=== PATIENT | female | born 1955 | race Caucasian/White ===

== ENCOUNTER → 2020-01-24 | Day surgery (SDC) | payer OTHER ==
[2020-01-21 09:59] VITALS: BMI 28.1
[~2020-01-24] MED LIST: LACTATED RINGERS 1,000 ML IV SCH; MULTIVITAMINS, THERA 1 EACH TAB PO SCH; OXYBUTYNIN CHLORIDE 5 MG TAB PO SCH; PROPOFOL 10 MG/ML 20 ML VIAL IV ONE; RIVAROXABAN 20 MG TAB PO SCH; SODIUM CHLORIDE 0.9% 1,000 ML IV SCH; carvediloL 6.25 MG TAB PO SCH; hydrALAZINE HCL 50 MG TAB PO SCH; hydroCHLOROthiazide 25 MG TAB PO SCH; lisinopriL 5 MG TAB PO SCH
[2020-01-24 06:54] LABS: African American GFR (CKD) >90 (>60 ml/min/1.73 sqM); Anion Gap 5 mmol/L; Blood Urea Nitrogen 24 mg/dL (7-17); Calcium 9.2 mg/dL (8.4-10.2); Carbon Dioxide 36 mmol/L (22-30); Chloride 101 mmol/L (98-107); Glucose 111 mg/dL (74-99); Non-African American GFR(CKD) 83 (>60 ml/min/1.73 sqM); Potassium 3.2 mmol/L (3.5-5.1); Sodium 142 mmol/L (137-145)
--- NOTE | 2020-01-24 07:43 | CE ---
CARDIAC ELECTROPHYSIOLOGY REPORT CARDIOVERSION PROCEDURE NOTE: INDICATION: Atrial fibrillation. PROCEDURE: After explaining the procedure to the patient as well as risks and the complications after performing transesophageal echocardiogram and obtaining sedated state, a synchronized biphasic cardioversion using 200 joules and subsequently 250 joules were successful in restoring normal sinus rhythm. There was no immediate complication. YOLANDA / IKE: [id number] /
[2020-01-24 08:05] VITALS: TEMP 97.5
[2020-01-24 08:07] VITALS: RESP 16
--- NOTE | 2020-01-24 09:25 | ECHOT ---
TRANSESOPHAGEAL ECHOCARDIOGRAM INDICATION: Atrial fibrillation. PROCEDURE: After explaining the procedure to the patient, its risks and complication, blood pressure heart rate O2 saturation was monitored, the throat was sprayed with Cetacaine. She received sedation per Anesthesia Department. After obtaining sedated state per anesthesia department, the probe was introduced into the esophagus without difficulty. Images were obtained. Following that, the probe was removed. There was no immediate complication. FINDINGS: Left ventricular size is moderately dilated. Left ventricular size and systolic function normal. The left atrial appendage is normal. The aortic valve, tricuspid and pulmonic valve are normal. Descending thoracic aorta appears to be normal. No pericardial effusion was noted. Contrast bubble study revealed no evidence of shunting across the interatrial septum. Doppler pulse was obtained. It revealed mild mitral with moderate tricuspid regurgitation. There was no shunting across the interatrial septum. CONCLUSION: 1. Dilated left atrium with normal appearance of left atrial appendage. 2. Normal size and systolic function. 3. Mild mitral with moderate tricuspid regurgitation. 4. No shunting across the interatrial septum. MMODL / IJN: [id number] /
[2020-01-24 09:33] VITALS: BP 151/85; PULSE 70
== END | disposition home or self-care (01) ==
LOC: CATHCVL 06:02
PROVIDERS: ATTEND Internal Medicine Interventional Cardiology
DX: I08.1 Rheumatic disorders of both mitral and tricuspid valves (principal); I48.21 Permanent atrial fibrillation; I10 Essential (primary) hypertension; E66.9 Obesity, unspecified; Z79.01 Long term (current) use of anticoagulants; Z79.899 Other long term (current) drug therapy; Z87.891 Personal history of nicotine dependence; Z68.35 Body mass index [BMI] 35.0-35.9, adult
CPT/HCPCS: 93312; 93320; 93325; 92960; 80048; J2704

== ENCOUNTER → 2021-01-01 | Outpatient (CLI) | payer OTHER ==
[2021-01-01 14:49] LABS: HGB 11.5 gm/dL (11.4-16.0); Hypochromasia Slight; MCH 28.6 pg (25.0-35.0); MCHC 29.6 g/dL (31.0-37.0); MCV 96.8 fL (80.0-100.0); Mean Platelet Volume 8.6; Platelet Count 146 k/uL (150-450); RBC 4.03 m/uL (3.80-5.40); RDW 14.8 % (11.5-15.5); WBC 7.3 k/uL (3.8-10.6)
[2021-01-01 14:57] LABS: African American GFR (CKD) >90 (>60 ml/min/1.73 sqM); Anion Gap 3 mmol/L; Blood Urea Nitrogen 23 mg/dL (7-17); Carbon Dioxide 37 mmol/L (22-30); Chloride 103 mmol/L (98-107); Non-African American GFR(CKD) >90 (>60 ml/min/1.73 sqM); Potassium 3.4 mmol/L (3.5-5.1); Sodium 143 mmol/L (137-145)
== END | disposition home or self-care (01) ==
LOC: LABPAT 13:51
PROVIDERS: ATTEND Internal Medicine Interventional Cardiology
DX: Z01.812 Encounter for preprocedural laboratory examination (principal); I48.11 Longstanding persistent atrial fibrillation
CPT/HCPCS: 36415; 80051; 82565; 84520; 85027

== ENCOUNTER 2021-01-05 05:49 | Day surgery (SDC) | payer OTHER ==
[2020-12-29 10:14] VITALS: BMI 33.4
[2021-01-05] MEDS ORDERED: SODIUM CHLORIDE 0.9% 1,000 ML IV SCH ×2 (06:04→07:45)
[2021-01-05] MEDS ORDERED: SODIUM CHLORIDE 0.9% 500 ML 500 ML IV ONE (06:20)
[2021-01-05] MEDS ORDERED: PROPOFOL 10 MG/ML 20 ML VIAL IV ONE (07:12)
[2021-01-05] MEDS: BENZOCAINE SPRAY 1 CAN MUCOUS MEM ONE ×2 (07:15→07:20)
[2021-01-05 07:46] VITALS: TEMP 98
[2021-01-05 08:02] VITALS: RESP 16
--- NOTE | 2021-01-05 08:38 | ECHOT ---
TRANSESOPHAGEAL ECHOCARDIOGRAM INDICATION: Evaluation of left atrial appendage. PROCEDURE: After explaining the procedure to the patient, its risks and the complications, blood pressure, heart rate, O2 saturation was monitored. The throat was sprayed with Cetacaine. She received sedation per Anesthesia Department. The probe was introduced into the esophagus without difficulty. Images were obtained. Following that, the probe was removed. There was no immediate complications. FINDINGS: Left atrial size is dilated. Left atrial appendage is normal. Left ventricular size and systolic function are normal. The aortic valve, mitral valve and tricuspid valve are normal. Descending thoracic aorta appears to be normal. Contrast bubble study revealed no evidence of shunting across the interatrial atrial septum. Pulse wave and color Doppler were obtained, revealed mild mitral and tricuspid regurgitation. There was no shunting by color Doppler study. CONCLUSION: 1. Dilated left atrium with normal appearance left atrial appendage. 2. Normal left ventricular size and systolic function. 3. Mild mitral and tricuspid regurgitation. 4. No shunting across the interatrial septum. MMODL / IJN: [id number] /
--- NOTE | 2021-01-05 08:38 | CE ---
CARDIAC ELECTROPHYSIOLOGY REPORT CARDIOVERSION: INDICATION: Atrial fibrillation. PROCEDURE: After explaining the procedure to the patient, its risks and the complications, after obtaining sedated state per anesthesia department and performing transesophageal echocardiogram, a synchronized biphasic cardioversion using 75, 100, 150, 200 joules were performed without ability to restore sinus mechanism. There was no immediate complication. YOLANDA / CAMRONN: [id number] / MTDD
[2021-01-05 10:25] VITALS: BP 154/71; PULSE 74
[2021-01-05] MEDS ORDERED: hydrALAZINE HCL 50 MG TAB PO SCH (16:00)
[2021-01-05] MEDS ORDERED: carvediloL 6.25 MG TAB PO SCH (17:30)
[2021-01-05] MEDS ORDERED: lisinopriL 5 MG TAB PO SCH (21:00)
[2021-01-05] MEDS ORDERED: RIVAROXABAN 20 MG TAB PO SCH (21:00)
[2021-01-06] MEDS ORDERED: MULTIVITAMINS, THERA 1 EACH TAB PO SCH (09:00)
[2021-01-06] MEDS ORDERED: hydroCHLOROthiazide 25 MG TAB PO SCH (09:00)
[2021-01-06] MEDS ORDERED: OXYBUTYNIN CHLORIDE 5 MG TAB PO SCH (09:00)
== END 2021-01-05 10:17 | disposition home or self-care (01) ==
LOC: CATHCVL 05:49
PROVIDERS: ATTEND Internal Medicine Interventional Cardiology
DX: I48.91 Unspecified atrial fibrillation (principal); I49.9 Cardiac arrhythmia, unspecified; I10 Essential (primary) hypertension; Z79.01 Long term (current) use of anticoagulants
CPT/HCPCS: 93312; 93320; 93325; 92960; J2704

== ENCOUNTER → 2021-05-21 | Outpatient (CLI) | payer OTHER ==
[2021-05-21 10:03] LABS: Potassium 3.2 mmol/L (3.5-5.1)
[2021-05-21 10:06] LABS: HCT 41.5 % (34.0-46.0); HGB 12.1 gm/dL (11.4-16.0); Hypochromasia Marked; MCH 25.6 pg (25.0-35.0); MCHC 29.1 g/dL (31.0-37.0); MCV 87.8 fL (80.0-100.0); Mean Platelet Volume 8.5; Platelet Count 224 k/uL (150-450); RBC 4.73 m/uL (3.80-5.40); RDW 15.8 % (11.5-15.5); WBC 6.6 k/uL (3.8-10.6)
== END | disposition home or self-care (01) ==
LOC: LABPAT 08:55
PROVIDERS: ATTEND Internal Medicine Clinical Cardiac Electrophysiology
DX: Z01.812 Encounter for preprocedural laboratory examination (principal); I48.11 Longstanding persistent atrial fibrillation
CPT/HCPCS: 80051; 82565; 84520; 85027

== ENCOUNTER 2021-05-29 08:27 | Day surgery (SDC) | payer OTHER ==
[2021-05-25 10:54] VITALS: BMI 33.4
[~2021-05-29 08:27] MED LIST changes: -MULTIVITAMINS, THERA 1 EACH TAB PO SCH; -OXYBUTYNIN CHLORIDE 5 MG TAB PO SCH; -PROPOFOL 10 MG/ML 20 ML VIAL IV ONE; -RIVAROXABAN 20 MG TAB PO SCH; -carvediloL 6.25 MG TAB PO SCH; -hydrALAZINE HCL 50 MG TAB PO SCH; -hydroCHLOROthiazide 25 MG TAB PO SCH; -lisinopriL 5 MG TAB PO SCH
[2021-05-29] MEDS ORDERED: IV FLUID CONTINUATION 1,000 ML IV ONE (10:27)
[2021-05-29] MEDS ORDERED: LIDOCAINE 1% INJ 10MG/ML (20 ML MDV) SQ ONE (11:10)
[2021-05-29] MEDS ORDERED: HEPARIN SOD,PORK IN 0.45% NACL 25,000 UNIT in 0.45% NACL 1 250ML.BAG IV ONE (11:12)
[2021-05-29] MEDS ORDERED: IOPAMIDOL-370 100ML BTL INJ ONE (13:02)
[2021-05-29] MEDS ORDERED: ACETAMINOPHEN IV (For NPO) 1,000 MG in EMPTY BAG 1 BAG IVPB ONE (13:18)
[2021-05-29] MEDS ORDERED: ACETAMINOPHEN TAB 325 MG TAB PO PRN (13:18)
--- NOTE | 2021-05-29 13:23 | P.EPPROC ---
- EP Procedure Note Electrophysiology Procedure Note: PROCEDURE A. fib ablation, PVI and ablation in the left atrial roof and the left atrial septum DIAGNOSIS Atrial fibrillation, symptomatic, refractory to therapy, persistent RESULT No left atrial appendage mass seen on intracardiac echo Successful A. fib ablation/pulmonary vein isolation of all veins using cryo- ablation Complete entrance block in all 4 veins confirmed Linear ablation along the left atrial roof Ablation of the left atrial septum Electrical cardioversion performed No evidence for phrenic nerve injury Esophageal deflection YES PROCEDURE DETAILS Patient was brought to the EP lab in a fasting state after obtaining written informed consent. Procedure performed under general anesthesia Esophagus was intubated. Esophageal temperature monitoring with circa catheter. Esophageal deflection with an endoscope to avoid hypothermia of the esophagus. After initial muscle relaxant use, muscle relaxants were not given thereafter in order to assess phrenic nerve during procedure. Patient prepped and draped as per protocol Cryo ablation-set up with standard preparation of the cryoablation tools done. Femoral Venous access obtained on the right and left groins and sheaths placed Diagnostic catheters for the high right atrium, phrenic nerve stimulation and pacing, His bundle, coronary sinus placed Intracardiac echo catheter placed. Long sheath placed in the right atrium Left and right transseptal catheterization performed under intracardiac echo guidance. Intravenous heparin with aCT above 300 Later, catheter positioning and balloon positioning in the left atrium and pulmonary veins, under intracardiac echo guidance Diagnostic EP study with coronary sinus pacing and recording Baseline measurements: AH 95, HV 54, QRS 73 Transseptal catheterization performed RA pressure 19/50/17 LA pressure 26/50/20 Transseptal catheterization performed with standard sheath. The cryoablation sheath was then placed with an over the wire exchange without any acute complications. The cryoablation balloon was placed in the office of each pulmonary vein and all 4 pulmonary veins were isolated. IV dye was injected to confirm occlusion. Goal: achieve complete occlusion of the pulmonary vein, achieve -30 degrees C at 30 seconds and achieve -40 degrees C at 60 seconds and a time to effect of less than 60 seconds. If not, the balloon was repositioned to obtain this result After completion of Cryoblation with durations from 180-240 seconds, entrance block was confirmed with the Attain circular catheter in a roving fashion around the antrum of the pulmonary veins Phrenic nerve pacing was performed from the SVC, right innominate vein area and diaphragm voltage was monitored. Diaphragmatic contractions were also monitored manually for strength of contraction. At the end of the procedure the Achieve catheter was once again used to check for entrance block Linear ablation was performed along the left atrial roof. Sequential lesions of Cryoblation from the left superior to the right superior veins Mapping following that revealed a quiescent left atrial roof Septal ablation performed with cannulation of the inferior branch of the right superior pulmonary vein. The catheter in the balloon/catheter turned anteriorly for left total septal ablation Phrenic nerve stimulation was performed to confirm diaphragmatic stimulation the end of the procedure Cine fluoroscopy was performed at the very end of the procedure to confirm movement of both diaphragms with inspiration and expiration At the end of the procedure the patient was extubated Venous sheaths were removed and hemostasis assured with a closure device PROCEDURES PERFORMED Diagnostic EP study CS pacing and recording Left and right transseptal catheterization Catheter the mapping of the tachycardia Intracardiac echocardiography Pulmonary vein isolation with transseptal and comprehensive EPS, [id number] Left atrial roof line, +[id number] Septal ablation, left atrium, +[id number] Electrical cardioversion with a synchronized shock across the chest [id number]
--- NOTE | 2021-05-29 13:25 | P.PRLE ---
RE: Niki Andino Dear Licha Niki Thu underwent in A. fib ablation with pulmonary vein isolation successfully along with left atrial roof and left atrial septum ablation She will continue xarelto 20 mg by mouth daily and will follow with you and Dr. Carr as before Thank you for entrusting me with the care of the patient Warm regards Sincerely Adair Matos
[2021-05-29 15:05] VITALS: RESP 16
[2021-05-29] MEDS: hydrALAZINE HCL 50 MG TAB PO SCH ×2 (16:50→22:26)
[2021-05-29] MEDS ORDERED: RIVAROXABAN 20 MG TAB PO SCH (21:00)
[2021-05-29] MEDS: carvediloL 6.25 MG TAB PO SCH (22:25)
[2021-05-29] MEDS: lisinopriL 5 MG TAB PO SCH (22:26)
[2021-05-30 08:37] VITALS: BP 149/80; PULSE 80; TEMP 98.4
[2021-05-30] MEDS: hydrALAZINE HCL 50 MG TAB PO SCH (08:50)
[2021-05-30] MEDS: carvediloL 6.25 MG TAB PO SCH (08:50)
[2021-05-30] MEDS: lisinopriL 5 MG TAB PO SCH (08:50)
[2021-05-30] MEDS ORDERED: OXYBUTYNIN CHLORIDE 5 MG TAB PO SCH (09:00)
[2021-05-30] MEDS ORDERED: hydroCHLOROthiazide 25 MG TAB PO SCH (09:00)
--- NOTE | 2021-05-30 09:51 | P.DS ---
Providers Attending physician: Adair Matos Primary care physician: [facility] Course: Patient is doing well. No chest discomfort no dizziness lightheadedness no palpitations No sore throat She is resting comfortably in bed and is more prominent in the room On examination afebrile 98.4F respirations 16 146/85 mmHg and 135/76. His mercury Breath sounds are clear no rhonchi no crackles Soft systolic murmur over the precordium Abdomen soft Extremities are warm Groins have healed well no hematoma Impression persistent atrial fibrillation Status post pulmonary vein isolation and ablation of left atrial roof and the left atrial septum Followed by electrical cardioversion Plan continue all cardiac medications Continue anticoagulation. This was emphasized to the patient once again Plan discharge home today Follow Dr. Carr in 1-2 weeks Plan - Discharge Summary Discharge Rx Participant: No New Discharge Prescriptions: Continue Rivaroxaban [Xarelto] 20 mg PO HS lisinopriL [Zestril] 5 mg PO BID hydroCHLOROthiazide [Hydrodiuril] 25 mg PO DAILY Carvedilol [Coreg] 6.25 mg PO BID hydrALAZINE HCL [Apresoline] 50 mg PO TID Multivitamins, Thera [Multivitamin (formulary)] 1 tab PO DAILY Oxybutynin Chloride [Ditropan] 5 mg PO DAILY Discharge Medication List Carvedilol [Coreg] 6.25 mg PO BID 01/21/20 [History] Multivitamins, Thera [Multivitamin (formulary)] 1 tab PO DAILY 01/21/20 [History] Oxybutynin Chloride [Ditropan] 5 mg PO DAILY 01/21/20 [History] Rivaroxaban [Xarelto] 20 mg PO HS 01/21/20 [History] hydrALAZINE HCL [Apresoline] 50 mg PO TID 01/21/20 [History] hydroCHLOROthiazide [Hydrodiuril] 25 mg PO DAILY 01/21/20 [History] lisinopriL [Zestril] 5 mg PO BID 01/21/20 [History] Follow up Appointment(s)/Referral(s): Farzana Carr MD [STAFF PHYSICIAN] - 06/06/21 9:00 am (Follow up with Dr. Carr as scheduled for you) Activity/Diet/Wound Care/Special Instructions: Post EP study - Ablation instructions 1. Keep access sites dry for 2 days. 2. No heavy lifting or straining for 2 days. 3. Avoid bending the hips repeatedly for 2 days. 4. You may go up and down stairs slowly Call if the following is noted 1. Bleeding, increasing swelling or pain at the access sites. 2. Increasing chest discomfort, especially upon taking a deep breath. 3. Increasing shortness of breath, at rest or with exertion. 4. Undue cough / phlegm 5. Difficulty or pain while swallowing. 6. Pain or change in color in the extremities. 7. Fever, chills, rigors. 8. Increasing headache or neurologic symptoms. 9. Dizziness, fainting, palpitations Follow Dr. Carr in a week Continue Xarelto and other cardiac medications
== END 2021-05-30 10:53 | disposition home or self-care (01) ==
LOC: CATHEP 08:27 → 6NMEDSUR 13:00 → CATHEP 05-30 10:53
PROVIDERS: ATTEND Internal Medicine Clinical Cardiac Electrophysiology
DX: I48.91 Unspecified atrial fibrillation (principal); Z20.822 Contact with and (suspected) exposure to COVID-19
CPT/HCPCS: 93656; 93657; 87635; J2001; Q9967; J1644; 92960

== ENCOUNTER 2021-09-07 06:01 | Day surgery (SDC) | payer OTHER ==
[2021-09-04 15:03] VITALS: BMI 33.4
[~2021-09-07 06:01] MED LIST changes: -LACTATED RINGERS 1,000 ML IV SCH
[2021-09-07] MEDS ORDERED: SODIUM CHLORIDE 0.9% 1,000 ML IV ONE (06:08)
[2021-09-07 06:36] VITALS: TEMP 9.6
[2021-09-07 07:02] LABS: African American GFR (CKD) >90 (>60 ml/min/1.73 sqM); Anion Gap 6 mmol/L; Blood Urea Nitrogen 22 mg/dL (7-17); Calcium 9.1 mg/dL (8.4-10.2); Carbon Dioxide 34 mmol/L (22-30); Chloride 104 mmol/L (98-107); Glucose 103 mg/dL (74-99); Non-African American GFR(CKD) 81 (>60 ml/min/1.73 sqM); Potassium 3.5 mmol/L (3.5-5.1); Sodium 144 mmol/L (137-145)
[2021-09-07] MEDS ORDERED: PROPOFOL 10 MG/ML 20 ML VIAL IV ONE (07:12)
[2021-09-07] MEDS ORDERED: BENZOCAINE SPRAY 1 CAN TOPICAL ONE (07:13)
--- NOTE | 2021-09-07 07:41 | P.PCN ---
Date of Procedure: 09/07/21 Description of Procedure: Indication: Atrial fibrillation Procedure Description: After explaining the procedure to the patient, it's risk and complications, blood pressure, heart rate and O2 saturation were monitored. The throat was sprayed with Cetacaine. Patient received sedation per anesthesia department. The probe was introduced into the esophagus without difficulty. Images were obtained. Following that, the probe was removed. There was no immediate complication. Findings: Left atrial size is mildly dilated, left atrial appendage is normal. The ventricle size and systolic function are normal. The aortic valve revealed fibrocalcific changes of the aortic cusps with preserved opening, mitral and tricuspid valve appears to be normal. Descending thoracic aorta appears to be normal. No pericardial effusion was noted. Contrast bubble study revealed [id number] shunting of mild degree. Doppler: pulsed-wave and color Doppler were obtained and revealed mild mild and tricuspid regurgitation with evidence of [id number] shunting across the intra-atrial septum. Conclusion: 1. Mildly dilated left atrium with normal appearance of the left atrial appendage 2. Normal in size and systolic function 3. mild mitral and tricuspid regurgitation 4. Bidirectional shunt across the intra-atrial septum probably secondary to the atrial fibrillation ablation 5. No pericardial effusion
--- NOTE | 2021-09-07 07:42 | P.PCN ---
Date of Procedure: 09/07/21 Description of Procedure: Cardioversion After explaining the procedure to the patient as well is the risks and the complications, her blood pressure, heart rate and O2 saturation were monitored. After obtaining sedated state per Anesthesia department and performing a INDIRA synchronized biphasic cardioversion using 200 J was performed with episcopal of sinus mechanism, there was no immediate complications.
[2021-09-07] MEDS ORDERED: SODIUM CHLORIDE 0.9% 1,000 ML IV SCH (07:45)
[2021-09-07 07:57] VITALS: RESP 16
[2021-09-07 09:23] VITALS: BP 161/72; PULSE 75
[2021-09-07] MEDS ORDERED: hydrALAZINE HCL 50 MG TAB PO SCH (16:00)
[2021-09-07] MEDS ORDERED: carvediloL 12.5 MG TAB PO SCH (17:30)
[2021-09-07] MEDS ORDERED: lisinopriL 5 MG TAB PO SCH (21:00)
[2021-09-07] MEDS ORDERED: RIVAROXABAN 20 MG TAB PO SCH (21:00)
[2021-09-08] MEDS ORDERED: hydroCHLOROthiazide 25 MG TAB PO SCH (09:00)
[2021-09-08] MEDS ORDERED: OXYBUTYNIN CHLORIDE 5 MG TAB PO SCH (09:00)
[2021-09-08] MEDS ORDERED: MULTIVITAMINS, THERA 1 EACH TAB PO SCH (09:00)
== END 2021-09-07 09:42 | disposition home or self-care (01) ==
LOC: CATHCVL 06:01
PROVIDERS: ATTEND Internal Medicine Interventional Cardiology
DX: I48.91 Unspecified atrial fibrillation (principal); I08.1 Rheumatic disorders of both mitral and tricuspid valves; Z20.822 Contact with and (suspected) exposure to COVID-19
CPT/HCPCS: 93312; 93320; 93005; 93325; 92960; 80048; 87635; J2704

== ENCOUNTER → 2022-03-11 | Outpatient (CLI) | payer OTHER ==
--- NOTE | 2022-03-12 08:33 | MM ---
Reason for Exam: Screening (asymptomatic). Baseline mammogram. Patient History: Menarche at age 15. First Full-Term at age 34. Late child-bearing (after 30). Postmenopausal. Risk Values: Shavonne 5 year model risk: 2.2%. NCI Lifetime model risk: 8.9%. Prior Study Comparison: Patient's first Mammogram. Tissue Density: There are scattered fibroglandular densities. Findings: Analyzed By CAD. There is no suspicious group of microcalcifications or new suspicious mass in either breast. Overall Assessment: Negative, BI-RAD 1 Management: Screening Mammogram of both breasts in 1 year. A clinical breast exam by your physician is recommended on an annual basis and results should be correlated with mammographic findings. [facility] will attempt to contact patient to return for supplemental views and ultrasound if indicated. Electronically signed and approved by: Shay Lu DO
== END | disposition home or self-care (01) ==
LOC: RADMAMWWP 10:59
PROVIDERS: ATTEND Family Medicine
DX: Z12.31 Encounter for screening mammogram for malignant neoplasm of breast (principal); Z78.0 Asymptomatic menopausal state
CPT/HCPCS: 77067

== ENCOUNTER 2022-05-03 09:22 | Day surgery (SDC) | payer OTHER ==
[2022-05-01 11:51] VITALS: BMI 33.4
[~2022-05-03 09:22] MED LIST changes: +LACTATED RINGERS 1,000 ML IV SCH; -SODIUM CHLORIDE 0.9% 1,000 ML IV SCH
[2022-05-03] MEDS ORDERED: LACTATED RINGERS 1,000 ML IV ONE (10:12)
[2022-05-03] MEDS ORDERED: PROPOFOL 10 MG/ML 20 ML VIAL IV ONE (11:26)
--- NOTE | 2022-05-03 11:53 | P.PCN ---
Date of Procedure: 05/03/22 Procedure(s) Performed: BRIEF HISTORY: Patient is a 66-year-old pleasant white female scheduled for an elective colonoscopy as a part of screening for colorectal neoplasia. PROCEDURE PERFORMED: Colonoscopy with snare polypectomy. PREOPERATIVE DIAGNOSIS: SCREENING for colon cancer. IV sedation per Anesthesia. PROCEDURE: After informed consent was obtained, the patient, was brought into the endoscopy unit. IV sedation was administered by Anesthesia under continuous monitoring. Digital rectal examination was normal. Initially the Olympus CF-160 flexible video colonoscope was then inserted in the rectum, gradually advanced into the cecum without any difficulty. Careful examination was performed as the scope was gradually being withdrawn. Ileocecal valve and the appendiceal orifice were visualized and appeared normal. Prep was excellent. Mucosa of the cecum, had a 3 mm and 7 mm polyp removed by snare polypectomy. Rest of the ascending colon, transverse colon, descending colon, sigmoid colon, and rectum appeared normal. Retroflexion was performed in the rectum and is a 3 cm broad-based polyp noted in the distal rectum just proximal to the dentate line which was removed by piecemeal snare polypectomy and complete polypectomy was accomplished. The patient tolerated the procedure well. IMPRESSION: 3 mm and 7 mm cecal polyp status post polypectomy 3 cm distal rectal polyp just proximal to the dentate line status post piecemeal snare polypectomy and complete polypectomy accomplished RECOMMENDATIONS: Findings of this examination were discussed with the patient as well as her family.. Advised to follow with the biopsy results. If the biopsy result adenoma she can have a repeat colonoscopy in 3 years.
[2022-05-03 11:59] VITALS: RESP 14
[2022-05-03 12:12] VITALS: BP 145/84; PULSE 72
== END 2022-05-03 12:38 | disposition home or self-care (01) ==
LOC: ORWHC2ENDO 09:22
PROVIDERS: ATTEND Internal Medicine Gastroenterology
DX: Z12.11 Encounter for screening for malignant neoplasm of colon (principal); K62.1 Rectal polyp
CPT/HCPCS: 88305; 45385; J2704

== ENCOUNTER → 2023-10-29 | Outpatient (CLI) | payer MEDICARE ==
[2023-10-29 10:46] LABS: HCT 43.4 % (34.0-46.0); HGB 13.5 gm/dL (11.4-16.0); Hypochromasia Slight; MCH 30.6 pg (25.0-35.0); MCV 98.5 fL (80.0-100.0); Mean Platelet Volume 9.1; Platelet Count 165 k/uL (150-450); RBC 4.41 m/uL (3.80-5.40); RDW 14.3 % (11.5-15.5); WBC 6.5 k/uL (3.8-10.6)
[2023-10-29 15:42] LABS: Blood Urea Nitrogen 24.9 mg/dL (9.0-27.0); Carbon Dioxide 29.2 mmol/L (21.6-31.8); Chloride 108 mmol/L (96-109); Potassium 3.8 mmol/L (3.5-5.5); Sodium 148 mmol/L (135-145)
== END | disposition home or self-care (01) ==
LOC: LABPAT 10:02
PROVIDERS: ATTEND Internal Medicine Clinical Cardiac Electrophysiology
DX: Z01.812 Encounter for preprocedural laboratory examination (principal); I48.21 Permanent atrial fibrillation
CPT/HCPCS: 80051; 82565; 84520; 85027

== ENCOUNTER 2023-11-04 05:53 | Inpatient (IN) | payer MEDICARE ==
[2023-11-04] MEDS: SODIUM CHLORIDE 0.9% 1,000 ML IV SCH (06:40)
[2023-11-04] MEDS: IV FLUID CONTINUATION 1,000 ML IV ONE (06:40)
[2023-11-04 06:53] LABS: ALT 23 U/L (4-34); AST 30 U/L (14-36); African American GFR (CKD) >90 (>60 ml/min/1.73 sqM); Alkaline Phosphatase 66 U/L (38-126); Anion Gap 1 mmol/L; Blood Urea Nitrogen 21 mg/dL (7-17); Calcium 9.4 mg/dL (8.4-10.2); Carbon Dioxide 37 mmol/L (22-30); Chloride 105 mmol/L (98-107); Glucose 112 mg/dL (74-99); Non-African American GFR(CKD) >90 (>60 ml/min/1.73 sqM); Potassium 3.7 mmol/L (3.5-5.1); Sodium 143 mmol/L (137-145); Total Bilirubin 0.8 mg/dL (0.2-1.3); Total Protein 6.5 g/dL (6.3-8.2)
[2023-11-04] MEDS ORDERED: MIDAZOLAM 2 MG/2 ML VIAL IV PRN (07:00)
[2023-11-04] MEDS ORDERED: HYDROmorphone 0.5 MG/0.5 ML SYRINGE IVP PRN (07:00)
[2023-11-04] MEDS: HEPARIN SOD,PORK IN 0.45% NACL 25,000 UNIT in 0.45% NACL 1 250ML.BAG IV ONE (07:16)
[2023-11-04] MEDS ORDERED: PROPOFOL 10 MG/ML 20 ML VIAL IV ONE (07:23)
[2023-11-04] MEDS ORDERED: SUGAMMADEX SODIUM 200 MG/2 ML SDV IV ONE (07:23)
[2023-11-04] MEDS ORDERED: GLYCOPYRROLATE 0.2 MG/ML 2 ML VIAL ONE (07:23)
[2023-11-04] MEDS ORDERED: NEOSTIGMINE 1 MG/ML 10 ML VIAL ONE (07:23)
[2023-11-04] MEDS ORDERED: SUCCINYLCHOLINE CHLORIDE 200 MG/10 ML VIAL IV ONE (07:23)
[2023-11-04] MEDS ORDERED: ROCURONIUM 10 MG/ML (5 ML VIAL) IV ONE (07:23)
[2023-11-04] MEDS ORDERED: LIDOCAINE 1% INJ 10MG/ML (20 ML MDV) ONE (07:50)
[2023-11-04] MEDS: LIDOCAINE 1% INJ 10MG/ML (20 ML MDV) SQ ONE (08:16)
[2023-11-04] MEDS: MAGNESIUM SULFATE-D5W PMX 1 GM in DEXTROSE/WATER 1 100ML.BAG IVPB SCH (09:10)
[2023-11-04] MEDS: HEPARIN SOD,PORK IN 0.45% NACL 25,000 UNIT in 0.45% NACL 1 250ML.BAG IV SCH (09:30)
[2023-11-04 09:38] LABS: T4, Free (Free Thyroxine) 1.09 ng/dL (0.78-2.19)
--- NOTE | 2023-11-04 10:56 | P.HPIM ---
History of Present Illness Patient is a pleasant 67 years old female with past medical history of atrial fibrillation, hyperlipidemia, hypertension history of patent foramen ovale She is from [place] She was admitted for outpatient procedures in the hospital with cardioversion however during the procedure patient developed significant arrhythmia with V. tach and V-fib and she is brought back to sinus rhythm Therefore patient required to be admitted to the hospital for evaluation by organic preparation technician Dr. Carr for possible cardiac cath tomorrow Continue with her medication continue monitoring her blood pressure which was little bit high She has a history of T4 is elevated and TSH suppressed per history Patient was seen and examined in the PACU unit where she was fully awake and oriented, she was feeling comfortable no chest pain or dyspnea No other abdominal pain or vomiting. No urinary complaints headache dizziness weakness She denies smoking alcohol or illicit drugs Currently her blood pressure is 173/95, she is afebrile CBC is unremarkable, TSH was checked today it was low at 0.1 with free T4 normal at 1.0 Review of Systems Review of systems CONSTITUTIONAL: No fever, no malaise, no fatigue. HEENT: No recent visual problems or hearing problems. Denied any sore throat. CARDIOVASCULAR: No orthopnea, PND, no palpitations, no syncope. PULMONARY: No shortness of breath, no cough, no hemoptysis. GASTROINTESTINAL: No diarrhea, no nausea, no vomiting, no abdominal pain. Normoactive bowel sounds. NEUROLOGICAL: No headaches, no weakness, no numbness. HEMATOLOGICAL: Denies any bleeding or petechiae. GENITOURINARY: Denies any burning micturition, frequency, or urgency. MUSCULOSKELETAL/RHEUMATOLOGICAL: Denies any joint pain, swelling, or any muscle pain. ENDOCRINE: Denies any polyuria or polydipsia. Past Medical History Past Medical History: Atrial Fibrillation, Hyperlipidemia, Hypertension Additional Past Medical History / Comment(s): frequent swelling ankles & feet, bladder urgency, see Dr Matos H & P History of Any Multi-Drug Resistant Organisms: None Reported Past Surgical History: Cardiac Ablation, Hysterectomy Additional Past Surgical History / Comment(s): cardioversion & INDIRA Past Anesthesia/Blood Transfusion Reactions: No Reported Reaction Smoking Status: Never smoker - Past Family History Mother Additional Family Medical History / Comment(s): CEREBRAL HEMORRHAGE Sister(s) Family Medical History: Cancer Additional Family Medical History / Comment(s): LUNG CANCER Father Family Medical History: Cancer Medications and Allergies Home Medications Medication Instructions Recorded Confirmed Type Multivitamins, Thera [Multivitamin 1 tab PO DAILY 01/21/20 11/04/23 History (formulary)] Rivaroxaban [Xarelto] 20 mg PO HS 01/21/20 11/04/23 History carvediloL [Coreg] 12.5 mg PO BID 01/21/20 11/04/23 History hydrALAZINE HCL [Apresoline] 50 mg PO TID 01/21/20 11/04/23 History hydroCHLOROthiazide [Hydrodiuril] 25 mg PO AC-LUNCH 01/21/20 11/04/23 History lisinopriL [Zestril] 5 mg PO BID 01/21/20 11/04/23 History oxyBUTYnin chloride [Ditropan] 5 mg PO DAILY 01/21/20 11/04/23 History Potassium Citrate 99 mg PO DAILY 10/31/23 11/04/23 History Rosuvastatin [Crestor] 10 mg PO DAILY 10/31/23 11/04/23 History Allergies Allergy/AdvReac Type Severity Reaction Status Date / Time No Known Allergies Allergy Verified 11/04/23 06:20 Physical Exam Vitals: Vital Signs Temp Pulse Resp BP Pulse Ox 11/04/23 10:00 67 16 173/95 98 11/04/23 09:45 68 14 174/92 100 11/04/23 09:30 65 14 155/89 100 11/04/23 09:15 67 14 154/91 100 11/04/23 09:00 69 14 161/91 100 11/04/23 08:52 73 18 172/96 73 L 11/04/23 06:39 98.7 F 18 179/87 91 L Intake and Output 11/03/23 11/04/23 11/04/23 22:59 06:59 14:59 Intake Total 20 687 Balance 20 687 Intake: IV 20 687 Other: Weight 105.4 kg GENERAL: The patient is alert and oriented x3, not in any acute distress. Well developed, well nourished. HEENT: Pupils are round and equally reacting to light. EOMI. No scleral icterus. No conjunctival pallor. Normocephalic, atraumatic. No pharyngeal erythema. No thyromegaly. CARDIOVASCULAR: S1 and S2 present. No murmurs, rubs, or gallops. PULMONARY: Chest is clear to auscultation, no wheezing , no crackles. ABDOMEN: Soft, nontender, nondistended, normoactive bowel sounds. No palpable organomegaly. MUSCULOSKELETAL: No joint swelling or deformity. EXTREMITIES: No cyanosis, clubbing, or pedal edema. NEUROLOGICAL: Gross neurological examination did not reveal any focal deficits. SKIN: No rashes. no petechiae. Results CBC & Chem 7: 11/04/23 06:15 Labs: Abnormal Lab Results - Last 24 Hours (Table) 11/04/23 Range/Units 06:15 Carbon Dioxide 37 H (22-30) mmol/L BUN 21 H (7-17) mg/dL Glucose 112 H (74-99) mg/dL TSH 0.153 L (0.465-4.680) mIU/L Assessment and Plan Assessment: A-fib status post ablation, and cardioversion Patent fromen ovale Hypertension hyperlipidemia Plan: Admit to the stepdown continue with heparin drip Continue monitoring blood pressure. Currently she is on Coreg 12.5 mg and lisinopril 10 mg twice daily Cardiology consult Possible cardiac cath tomorrow GI and DVT prophylaxis
[2023-11-04] MEDS: hydrALAZINE HCL 50 MG TAB PO SCH ×2 (11:01→17:33)
[2023-11-04] MEDS: SPIRONOLACTONE 25 MG TAB PO SCH (11:01)
[2023-11-04] MEDS: ATORVASTATIN 40 MG TAB PO SCH (14:28)
[2023-11-04] MEDS: LACTATED RINGERS 1,000 ML IV SCH (14:28)
[2023-11-04] MEDS: lisinopriL 20 MG TAB PO SCH (14:29)
[2023-11-04] MEDS ORDERED: IPRATROPIUM-ALBUTEROL 3 ML NEB INHALATION PRN (16:10)
[2023-11-04] MEDS: IPRATROPIUM-ALBUTEROL 3 ML NEB INHALATION STA (16:21)
[2023-11-04] MEDS: carvediloL 12.5 MG TAB PO SCH (16:44)
[2023-11-04] MEDS: lisinopriL 10 MG TAB PO SCH (17:33)
[2023-11-04] MEDS: FAMOTIDINE 20 MG/2 ML VIAL IV SCH (20:19)
[2023-11-05] MEDS ORDERED: ALPRAZolam 0.5 MG TAB PO PRN (08:36)
[2023-11-05] MEDS ORDERED: NITROGLYCERIN SL TABS 0.4 MG TAB SUBLINGUAL PRN (08:36)
[2023-11-05] MEDS ORDERED: ALPRAZolam 0.25 MG TAB PO PRN (08:36)
[2023-11-05 09:06] VITALS: PULSE 67; RESP 18; TEMP 98.6
[2023-11-05] MEDS: ATORVASTATIN 80 MG TAB PO STA (09:09)
[2023-11-05] MEDS: ASPIRIN 325 MG TAB PO STA (09:10)
[2023-11-05] MEDS: IV FLUID CONTINUATION 1,000 ML IV ONE (10:53)
[2023-11-05] MEDS ORDERED: VERAPAMIL 2.5 MG/ML 2 ML AMP ONE (11:02)
[2023-11-05] MEDS ORDERED: LIDOCAINE 1% INJ 10MG/ML (20 ML MDV) ONE (11:02)
[2023-11-05] MEDS ORDERED: HEPARIN SODIUM 1,000 UN/ML (10ML VL) ONE (11:03)
[2023-11-05] MEDS ORDERED: fentaNYL (PF) 50 MCG/ML 2 ML AMP ONE (11:03)
[2023-11-05] MEDS: fentaNYL (PF) 50 MCG/ML 2 ML AMP IVP ONE (11:10)
[2023-11-05] MEDS: LIDOCAINE 1% INJ 10MG/ML (20 ML MDV) SQ ONE (11:14)
[2023-11-05] MEDS: HEPARIN SODIUM,PORCINE 10,000 UNIT in SODIUM CHLORIDE 0.9% 1,000 ML IRRIGATION PRN (11:18)
[2023-11-05] MEDS: HEPARIN SODIUM,PORCINE (1 ML) 2,500 UNIT in SODIUM CHLORIDE 0.9% 250 ML IRRIGATION PRN (11:18)
[2023-11-05] MEDS: HEPARIN SODIUM 1,000 UN/ML (10ML VL) IVP ONE (11:19)
[2023-11-05] MEDS: IOPAMIDOL-370 100ML BTL INJ ONE (11:28)
[2023-11-05 11:36] LABS: Basophils % (A) 0 %; Eosinophils % (A) 0 %; HGB 13.3 gm/dL (11.4-16.0); Hypochromasia Moderate; Lymphocytes # (A) 0.9 k/uL (1.0-4.8); Lymphocytes % (A) 12 %; MCH 30.5 pg (25.0-35.0); MCHC 30.3 g/dL (31.0-37.0); MCV 100.7 fL (80.0-100.0); Macrocytosis Slight; Mean Platelet Volume 9.2; Monocytes # (A) 0.4 k/uL (0-1.0); Monocytes % (A) 5 %; Neutrophils # (A) 5.9 k/uL (1.3-7.7); Neutrophils % (A) 81 %; Platelet Count 135 k/uL (150-450); RBC 4.37 m/uL (3.80-5.40); RDW 14.4 % (11.5-15.5); WBC 7.3 k/uL (3.8-10.6)
[2023-11-05 11:41] LABS: African American GFR (CKD) >90 (>60 ml/min/1.73 sqM); Anion Gap 4 mmol/L; Blood Urea Nitrogen 22 mg/dL (7-17); Carbon Dioxide 33 mmol/L (22-30); Chloride 105 mmol/L (98-107); Glucose 91 mg/dL (74-99); Non-African American GFR(CKD) >90 (>60 ml/min/1.73 sqM); Sodium 142 mmol/L (137-145)
[2023-11-05 11:44] LABS: Potassium 3.8 mmol/L (3.5-5.1)
[2023-11-05] MEDS ORDERED: RX INFO: IV CONTRAST WAS GIVEN 1 EACH MISC MISCELLANE PRN (11:44)
--- NOTE | 2023-11-05 11:52 | P.CARDCATH ---
Date of Procedure: 11/05/23 Description of Procedure: Cardiac Catheterization: The patient is a 67-year-old female with recurrent atrial tachycardia and atrial fibrillation who was scheduled to undergo ablation and after inducing general anesthesia she had runs of recurrent ventricular tachycardia. She was evaluated by Dr. Matos. Recommendations were made regarding cardiac catheterization, the risks and the complications were discussed with the patient who is in full understanding and agreement. Procedure Description: Patient was brought to laboratory machinist in fasting semi-sedated state after receiving Fentanyl and Benadryl achieiving moderate conscious sedated state. Using Xylocaine Anesthesia and modified Seldinger technique, a 6-Ivorian sheath was introduced in the right radial artery . Subsequently, selective coronary angiography was performed using a 5-Ivorian 3.5 bend Balta catheter. Multiple views of the coronary artery including hemiaxial views were obtained. The 5 Ivorian pigtail catheter was used to cross the aortic valve and LVEDP was calculated. Following that, catheter and sheath were removed. Hemostasis was obtained with deployment of vascular band . There was no immediate complication. Patient was returned to room in stable condition. Of note, the patient received a total of 5000 units of intravenous heparin as well as intra-arterial verapamil. Findings: Left main: This is a short size vessel, bifurcating into LAD and left circumflex, left main has no obstructive disease LAD: This is a large size vessel, giving rise to a large diagonal branch proximally. The LAD tapers down in the distal third. The LAD and its branches have no evidence of high-grade stenosis. There is a suggestion of possible mild intramyocardial bridging in the mid segment. Left circumflex: This is a large nondominant vessel giving rise to 2 tortuous obtuse marginal branch that have no obstructive disease RCA: This is a large size vessel, dominant, bifurcating into PDA and PLV. The right coronary artery and its branches have no obstructive disease Left Ventriculogram: Not performed Hemodynamics: There was no gradient across the aortic valve, LVEDP was 16-20 mmHg Conclusion: 1. 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 No obstructive disease in the RCA and left circumflex 3. Right dominance Recommendations: I have recommended to continue medical therapy with the aggressive coronary risks modifications, she will be evaluated to undergo her ablation. The findings and the recommendations were discussed with the patient and the family and they were in full understanding and agreement. Duration of sedation is 22 minutes.
--- NOTE | 2023-11-05 11:58 | P.CRDCN ---
History of Present Illness Consult date: 11/05/23 Consult reason: atrial fibrillation History of present illness: This is a 67-year-old female patient of Dr. Carr with past medical history of atrial fibrillation, PFO with bidirectional shunting and elevated PASP in the mid 70s, failed electrocardioversion of flecainide in the past, history of A-fib ablation with PVI left atrial roof ablation, left atrial septal ablation, history of hypertension, hyperlipidemia. We have been asked to evaluate the patient for A-fib. Patient was brought into the hospital yesterday by Dr. Matos for atrial fibrillation ablation which was aborted because patient went into polymorphic ventricular tachycardia and converted on her own. She did have cardioversion of 200 J x 2 and went from atrial fibrillation to sinus rhythm. Patient was then admitted to the cardiac stepdown unit where she has been seen by Dr. Carr. Patient subsequently underwent cardiac catheterization with Dr. Carr which revealed possible mild intramyocardial bridging in the mid LAD. No obstructive disease in the RCA and left circumflex. Right dominance. Patient was cleared for discharge later today and to resume Xarelto tomorrow. Blood pressure 123/78, heart rate 76, pulse ox 96% on 5 L nasal cannula. Laboratory studies: Sodium 143, potassium 3.7, BUN 21 creatinine 0.67, CO2 37. TSH 0.153 with normal free T4 of 1.09. Home cardiac medications: Coreg 12.5 mg twice daily, hydralazine 50 mg 3 times daily, hydrochlorothiazide 25 mg with lunch, lisinopril 5 mg twice daily, potassium citrate 99 mg daily, Xarelto 20 mg at bedtime, Crestor 10 mg at bedtime Review Of Systems: At the time of my exam: CONSTITUTIONAL: Denies fever or chills. HEENT: Denies blurred vision, vision changes, or eye pain. Denies hemoptysis CARDIOVASCULAR: Denies chest pain. Denies orthopnea. Denies PND. Denies palpitations RESPIRATORY: Denies shortness of breath. GASTROINTESTINAL: Denies abdominal pain. Denies nausea or vomiting. HEMATOLOGIC: Denies bleeding disorders. GENITOURINARY: Denies any blood in urine. SKIN: Denies puritis. Denies rash. Physical examination: Gen: This is a 67-year-old female in no acute distress VS: reviewed HEENT: Head is atraumatic, normocephalic. Pupils equal, round. Sclerae is anicteric. NECK: Supple. No JVD. LUNGS: Clear to auscultation. No wheezes or rhonchi. No intercostal retractions. HEART: Irregular rate and rhythm. ABDOMEN: Soft No tenderness. EXTREMITIES: No pedal edema. No calf tenderness. NEUROLOGICAL: Patient is awake, alert and oriented x3. Assessment: Polymorphic ventricular tachycardia, converted to sinus rhythm on her own Cardioversion of atrial fibrillation to sinus rhythm Persistent atrial fibrillation Residual PFO Plan: Patient is cleared for discharge from cardiology and may follow-up with Dr. Carr in 1 week Patient to resume all her home cardiac medications including Xarelto may be resumed tomorrow. Resume patient's home cardiac medications Thank you kindly for this consultation. Nurse practitioner note has been reviewed, I agree with documented findings and plan of care. Patient was seen and examined. Past Medical History Past Medical History: Atrial Fibrillation, Hyperlipidemia, Hypertension Additional Past Medical History / Comment(s): frequent swelling ankles & feet, bladder urgency, see Dr Matos H & P, pulseless vtach with cardioversion x2 11/04/23 History of Any Multi-Drug Resistant Organisms: None Reported Past Surgical History: Cardiac Ablation, Hysterectomy Additional Past Surgical History / Comment(s): cardioversion & INDIRA Past Anesthesia/Blood Transfusion Reactions: No Reported Reaction Past Psychological History: No Psychological Hx Reported Smoking Status: Never smoker Past Alcohol Use History: None Reported Past Drug Use History: None Reported - Past Family History Mother Additional Family Medical History / Comment(s): CEREBRAL HEMORRHAGE Sister(s) Family Medical History: Cancer Additional Family Medical History / Comment(s): LUNG CANCER Father Family Medical History: Cancer Medications and Allergies Home Medications Medication Instructions Recorded Confirmed Type Multivitamins, Thera [Multivitamin 1 tab PO DAILY 01/21/20 11/04/23 History (formulary)] Rivaroxaban [Xarelto] 20 mg PO HS 01/21/20 11/04/23 History carvediloL [Coreg] 12.5 mg PO BID 01/21/20 11/04/23 History hydrALAZINE HCL [Apresoline] 50 mg PO TID 01/21/20 11/04/23 History hydroCHLOROthiazide [Hydrodiuril] 25 mg PO AC-LUNCH 01/21/20 11/04/23 History lisinopriL [Zestril] 5 mg PO BID 01/21/20 11/04/23 History oxyBUTYnin chloride [Ditropan] 5 mg PO DAILY 01/21/20 11/04/23 History Potassium Citrate 99 mg PO DAILY 10/31/23 11/04/23 History Rosuvastatin [Crestor] 10 mg PO DAILY 10/31/23 11/04/23 History Allergies Allergy/AdvReac Type Severity Reaction Status Date / Time No Known Allergies Allergy Verified 11/04/23 06:20 Physical Exam Vitals: Vital Signs Temp Pulse Pulse Pulse Resp BP Pulse Ox 11/05/23 03:25 99.2 F 76 19 123/78 96 11/04/23 23:09 98.3 F 73 19 118/66 93 L 11/04/23 19:52 98.4 F 81 19 147/74 95 11/04/23 18:37 85 18 121/70 93 L 11/04/23 16:33 84 11/04/23 16:22 86 11/04/23 16:04 88 93 L 11/04/23 16:00 94 19 185/103 93 L 11/04/23 15:06 172/97 94 L 11/04/23 15:00 97.8 F 92 17 210/108 93 L 11/04/23 14:57 97.8 F 91 20 210/108 83 L 11/04/23 14:15 86 19 186/96 93 L 11/04/23 13:27 77 16 183/93 98 11/04/23 12:27 87 16 183/93 98 11/04/23 11:57 76 16 169/85 98 11/04/23 11:27 76 16 176/89 98 11/04/23 11:12 74 16 180/93 98 11/04/23 10:57 74 16 176/97 98 11/04/23 10:43 76 16 175/90 98 11/04/23 10:27 78 16 199/102 98 11/04/23 10:00 67 16 173/95 98 11/04/23 09:45 68 14 174/92 100 11/04/23 09:30 65 14 155/89 100 11/04/23 09:15 67 14 154/91 100 11/04/23 09:00 69 14 161/91 100 11/04/23 08:52 73 18 172/96 73 L Intake and Output 11/04/23 11/05/23 11/05/23 22:59 06:59 14:59 Intake Total 670 491.458 Balance 670 491.458 Intake: IV 10 10 Invasive Line 1 10 10 Intake, IV Titration 241.458 Amount Heparin Sod,Pork in 0.45% 241.458 NaCl 25,000 unit In 0.45 % NaCl 1 250ml.bag @ 9. 488 UNITS/KG/HR 10 mls/hr IV .Q24H [facility] Rx#: [id number] Oral 660 240 Other: Voiding Method External Catheter External Catheter # Voids 2 1 Weight 105.4 kg 104.6 kg Results 11/05/23 09:50 11/05/23 09:50 Cardiac Enzymes 11/04/23 Range/Units 06:15 AST 30 (14-36) U/L Coagulation 11/04/23 Range/Units 15:36 APTT 54.9 H (22.0-30.0) sec Comprehensive Metabolic Panel 11/04/23 Range/Units 06:15 Sodium 143 (137-145) mmol/L Potassium 3.7 (3.5-5.1) mmol/L Chloride 105 (98-107) mmol/L Carbon Dioxide 37 H (22-30) mmol/L BUN 21 H (7-17) mg/dL Creatinine 0.67 (0.52-1.04) mg/dL Glucose 112 H (74-99) mg/dL Calcium 9.4 (8.4-10.2) mg/dL AST 30 (14-36) U/L ALT 23 (4-34) U/L Alkaline Phosphatase 66 (38-126) U/L Total Protein 6.5 (6.3-8.2) g/dL Albumin 4.0 (3.5-5.0) g/dL Current Medications Generic Name Dose Route Start Last Admin Trade Name Freq PRN Reason Stop Dose Admin Albuterol/Ipratropium 3 ml 11/04/23 16:10 Ipratropium-Albuterol 3 Ml Neb INHALATION RT-QID PRN Shortness Of Breath Or Wheezing Atorvastatin Calcium 40 mg 11/04/23 09:00 11/04/23 14:28 Atorvastatin 40 Mg Tab PO 12/04/23 09:01 Not Given DAILY [facility] Carvedilol 12.5 mg 11/04/23 17:30 11/05/23 06:21 Carvedilol 12.5 Mg Tab PO 12.5 mg BID-W/MEALS [facility] Administration Famotidine 20 mg 11/04/23 21:00 11/04/23 20:19 Famotidine 20 Mg/2 Ml Vial IV 12/04/23 21:01 20 mg Q12HR [facility] Administration Hydralazine HCl 100 mg 11/04/23 11:00 11/04/23 20:18 Hydralazine Hcl 50 Mg Tab PO 12/04/23 11:01 100 mg TID [facility] Administration Sodium Chloride 1,000 mls @ 20 mls/hr 11/04/23 06:05 11/05/23 06:09 Saline 0.9% IV 12/04/23 06:06 20 mls/hr .Q24H [facility] Administration Lactated Ringer's 1,000 mls @ 20 mls/hr 11/04/23 06:05 11/04/23 14:28 Lactated Ringers IV 12/04/23 06:06 Not Given .Q24H [facility] Heparin Sodium/Sodium Chloride 250 mls @ 10 mls/hr 11/04/23 09:30 11/05/23 04:49 25,000 unit/ Sodium Chloride IV 11.86 units/kg/hr .Q24H [facility] 12.5 mls/hr Administration Protocol 9.488 UNITS/KG/HR Lisinopril 20 mg 11/04/23 14:15 11/04/23 20:19 Lisinopril 20 Mg Tab PO 12/04/23 09:01 20 mg BID [facility] Administration Spironolactone 25 mg 11/04/23 11:00 11/04/23 11:01 Spironolactone 25 Mg Tab PO 12/04/23 11:01 25 mg DAILY [facility] Administration Intake and Output 11/04/23 11/05/23 11/05/23 22:59 06:59 14:59 Intake Total 670 491.458 Balance 670 491.458 Intake: IV 10 10 Invasive Line 1 10 10 Intake, IV Titration 241.458 Amount Heparin Sod,Pork in 0.45% 241.458 NaCl 25,000 unit In 0.45 % NaCl 1 250ml.bag @ 9. 488 UNITS/KG/HR 10 mls/hr IV .Q24H [facility] Rx#: [id number] Oral 660 240 Other: Voiding Method External Catheter External Catheter # Voids 2 1 Weight 105.4 kg 104.6 kg 11/04/23 06:15
[2023-11-05] MEDS: SODIUM CHLORIDE 0.9% 1,000 ML IV SCH (12:20)
[2023-11-05 15:19] VITALS: BP 103/64
--- NOTE | 2023-11-06 06:37 | P.DS ---
Providers Date of admission: 11/04/23 10:42 Attending physician: Guillaume Castillo MD Consults: 11/04/23 10:52 Consult Physician Urgent Consulting Provider: Farzana Carr Consult Reason/Comments: a fib with cardiac arrythmia Do you want consulting provider notified?: Yes Primary care physician: Stated None Hospital Course: Diagnoses: A-fib status post ablation, and cardioversion Patent fromen ovale Hypertension hyperlipidemia Hospital course: Patient is a pleasant 67 years old female with past medical history of atrial fibrillation, hyperlipidemia, hypertension history of patent foramen ovale She is from [place] She was admitted for outpatient procedures in the hospital with cardioversion however during the procedure patient developed significant arrhythmia with V. tach and V-fib and she is brought back to sinus rhythm Therefore patient required to be admitted to the hospital for evaluation by railcar brake operator Dr. Carr for possible cardiac cath tomorrow Continue with her medication continue monitoring her blood pressure which was little bit high Patient evaluated by cardiology team next day and cardiac cath showing possible mild intramyocardial bridging in the mid LAD with no obstructive disease and RCA and left circumflex. Restaurant [employer] then recommended aggressive coronary risk modification and to continue with conservative management patient remains asymptomatic no chest pain no dyspnea no other new complaint. Patient agrees to go home today. Patient was cleared for discharge by railcar brake operator Problems and management plan were discussed with the patient and he verbalized understanding and acceptance Patient was found stable and can be discharged home in guarded prognosis however he needs follow-up as an outpatient. Patient was instructed to follow up with PCP Dr. Goldberg and Dr. Carr railcar brake operator within one week and patient agrees Physical exam Gen: patient is a AAOx3, no distress CVS: S1-S2, RRR, no murmur Lungs: B/L CTA, no wheezing Abdomen: soft, no distention, no tenderness, positive bowel sounds Extremity: no leg edema or induration Time spent more than 35 minutes Plan - Discharge Summary Discharge Rx Participant: No New Discharge Prescriptions: New Spironolactone [Aldactone] 25 mg PO DAILY #30 tab Atorvastatin [Lipitor] 40 mg PO DAILY #30 tab Nitroglycerin Sl Tabs [Nitrostat] 0.4 mg SUBLINGUAL Q5M PRN #20 tab PRN Reason: Chest Pain lisinopriL [Zestril] 20 mg PO BID #60 tab hydrALAZINE HCL [Apresoline] 100 mg PO TID #90 tab Continue Rivaroxaban [Xarelto] 20 mg PO HS carvediloL [Coreg] 12.5 mg PO BID Multivitamins, Thera [Multivitamin (formulary)] 1 tab PO DAILY oxyBUTYnin chloride [Ditropan] 5 mg PO DAILY Discontinued lisinopriL [Zestril] 5 mg PO BID hydroCHLOROthiazide [Hydrodiuril] 25 mg PO AC-LUNCH hydrALAZINE HCL [Apresoline] 50 mg PO TID Rosuvastatin [Crestor] 10 mg PO DAILY Potassium Citrate 99 mg PO DAILY Discharge Medication List Multivitamins, Thera [Multivitamin (formulary)] 1 tab PO DAILY 01/21/20 [History] Rivaroxaban [Xarelto] 20 mg PO HS 01/21/20 [History] carvediloL [Coreg] 12.5 mg PO BID 01/21/20 [History] oxyBUTYnin chloride [Ditropan] 5 mg PO DAILY 01/21/20 [History] Atorvastatin [Lipitor] 40 mg PO DAILY #30 tab 11/05/23 [Rx] Nitroglycerin Sl Tabs [Nitrostat] 0.4 mg SUBLINGUAL Q5M PRN #20 tab 11/05/23 [Rx] Spironolactone [Aldactone] 25 mg PO DAILY #30 tab 11/05/23 [Rx] hydrALAZINE HCL [Apresoline] 100 mg PO TID #90 tab 11/05/23 [Rx] lisinopriL [Zestril] 20 mg PO BID #60 tab 11/05/23 [Rx] Follow up Appointment(s)/Referral(s): Farzana Carr MD [STAFF PHYSICIAN] - 1 Week [facility] [[facility] - 1 Week Patient Instructions/Handouts: A-fib (Atrial Fibrillation) (DC), Heart Catheterization (DC), Cardiac Ablation (DC) Activity/Diet/Wound Care/Special Instructions: Resume Xarelto tomorrow. Discharge Disposition: HOME SELF-CARE
--- NOTE | 2023-11-10 11:00 | P.EPPROC ---
- EP Procedure Note Electrophysiology Procedure Note: Planned procedure A-fib ablation Final diagnosis Spontaneous long runs of polymorphic VT before as well as after general anesthesia A-fib ablation canceled Patient was in atrial fibrillation She underwent successful electrical cardioversion with a 200 J biphasic shock to sinus rhythm Details Patient was brought to the EP lab. As she was being hooked to the monitors we noticed 1 episode of polymorphic VT with spontaneous termination Subsequently when she underwent general anesthesia she had more episodes of spontaneous VT. No venous sheaths/intracardiac catheters catheters were placed thus far. The procedure was canceled She had already received IV heparin She underwent successful electrical cardioversion with a 200 J biphasic shock to sinus rhythm I discussed this with Dr. Carr as well as the admitting physician Plan Hold anticoagulation Continue all other medications Prepare patient for coronary angiography the next day after holding Eliquis for 2 doses This was discussed with the patient's son
== END 2023-11-05 16:29 | disposition home or self-care (01) | DRG 287 ==
LOC: CATHEP 05:53 → 3SCARD 08:25 → CATHEP 10:42 → 3SCARD 10:42
PROVIDERS: ADMIT Internal Medicine; ATTEND Internal Medicine
PROC: 5A2204Z Restoration of Cardiac Rhythm, Single (ICD-10-PCS; 2023-11-04)
PROC: 4A023N7 Measurement of Cardiac Sampling and Pressure, Left Heart, Percutaneous Approach (ICD-10-PCS; principal; 2023-11-05 11:05)
PROC: B2111ZZ Fluoroscopy of Multiple Coronary Arteries using Low Osmolar Contrast (ICD-10-PCS; principal; 2023-11-05 11:05)
DX: I49.01 Ventricular fibrillation (principal); Q21.12 Patent foramen ovale; Q24.5 Malformation of coronary vessels; I47.29 Other ventricular tachycardia; I48.19 Other persistent atrial fibrillation; I10 Essential (primary) hypertension; E78.5 Hyperlipidemia, unspecified; Z53.09 Procedure and treatment not carried out because of other contraindication; Z79.899 Other long term (current) drug therapy; Z79.01 Long term (current) use of anticoagulants
CPT/HCPCS: 80048; 80053; 84439; 84443; 85025; 85730; 86850; 86900; 86901; 93458; 94640

== ENCOUNTER → 2023-11-25 | Outpatient (CLI) | payer MEDICARE ==
[2023-11-25 15:08] LABS: HCT 42.3 % (37.2-46.3); HGB 13.2 g/dL (12.0-15.0); MCH 30.3 pg (27.0-32.0); MCHC 31.2 g/dL (32.0-37.0); MCV 97.2 FL (80.0-97.0); Mean Platelet Volume 11.4 FL (9.5-12.2); NRBC Per 100 WBC 0 X 10*3/uL (0.00-0.01); Platelet Count 186 X 10*3/uL (140-440); RBC 4.35 X 10*6/uL (4.10-5.20); WBC 5.79 X 10*3/uL (4.50-10.00)
[2023-11-25 16:01] LABS: Blood Urea Nitrogen 21.6 mg/dL (9.0-27.0); Carbon Dioxide 28.2 mmol/L (21.6-31.8); Chloride 107 mmol/L (96-109); Potassium 4.1 mmol/L (3.5-5.5); Sodium 145 mmol/L (135-145)
== END | disposition home or self-care (01) ==
LOC: LABPAT 10:56
PROVIDERS: ATTEND Internal Medicine Clinical Cardiac Electrophysiology
DX: Z01.812 Encounter for preprocedural laboratory examination (principal); I48.21 Permanent atrial fibrillation
CPT/HCPCS: 80051; 82565; 84520; 85027

== ENCOUNTER 2023-12-01 06:53 | Day surgery (SDC) | payer MEDICARE ==
[2023-11-28 09:13] VITALS: BMI 34.2
[2023-12-01] MEDS: SODIUM CHLORIDE 0.9% 1,000 ML IV SCH (07:03)
[2023-12-01] MEDS: IV FLUID CONTINUATION 1,000 ML IV ONE (07:07)
[2023-12-01 07:53] LABS: ALT 20 U/L (4-34); AST 30 U/L (14-36); African American GFR (CKD) >90 (>60 ml/min/1.73 sqM); Albumin 3.7 g/dL (3.5-5.0); Alkaline Phosphatase 68 U/L (38-126); Anion Gap 3 mmol/L; Blood Urea Nitrogen 25 mg/dL (7-17); Calcium 9.3 mg/dL (8.4-10.2); Carbon Dioxide 32 mmol/L (22-30); Chloride 106 mmol/L (98-107); Glucose 109 mg/dL (74-99); Non-African American GFR(CKD) >90 (>60 ml/min/1.73 sqM); Potassium 3.7 mmol/L (3.5-5.1); Sodium 141 mmol/L (137-145); Total Bilirubin 0.8 mg/dL (0.2-1.3); Total Protein 6.2 g/dL (6.3-8.2)
[2023-12-01] MEDS ORDERED: LIDOCAINE 1% INJ 10MG/ML (20 ML MDV) ONE ×2 (09:38→10:13)
[2023-12-01] MEDS ORDERED: NEOSTIGMINE 1 MG/ML 10 ML VIAL ONE (09:38)
[2023-12-01] MEDS ORDERED: MIDAZOLAM 2 MG/2 ML VIAL ONE (09:38)
[2023-12-01] MEDS ORDERED: GLYCOPYRROLATE 0.2 MG/ML 2 ML VIAL ONE (09:38)
[2023-12-01] MEDS ORDERED: SUGAMMADEX SODIUM 200 MG/2 ML SDV IV ONE (09:38)
[2023-12-01] MEDS ORDERED: HEPARIN SODIUM,PORCINE 5,000 UNIT/ML 1 ML VIAL ONE (09:38)
[2023-12-01] MEDS ORDERED: ROCURONIUM 10 MG/ML (5 ML VIAL) IV ONE (09:38)
[2023-12-01] MEDS ORDERED: HEPARIN SODIUM,PORCINE 10,000 UNIT/ML 1 ML VIAL ONE (09:38)
[2023-12-01] MEDS ORDERED: PHENYLEPHRINE-0.9% NACL SYG 1,000 MCG/10 ML SYRINGE ONE (09:38)
[2023-12-01] MEDS ORDERED: fentaNYL (PF) 50 MCG/ML 2 ML AMP ONE (09:38)
[2023-12-01] MEDS ORDERED: SUCCINYLCHOLINE CHLORIDE 200 MG/10 ML VIAL IV ONE (09:38)
[2023-12-01] MEDS ORDERED: PROPOFOL 10 MG/ML 20 ML VIAL IV ONE (09:38)
[2023-12-01 09:54] LABS: T4, Free (Free Thyroxine) 1.21 ng/dL (0.78-2.19)
--- NOTE | 2023-12-01 10:03 | P.HPCAR ---
History of Present Illness This is Dr. Matos dictating an H/P on this patient The patient was interviewed and examined IMPRESSION / ASSESSMENT: Paroxysmal atrial fibrillation despite A-fib ablation in the past Nonsustained VT under general anesthesia and her procedure was canceled No significant coronary artery disease by coronary angiography Residual PFO with bidirectional shunting and elevated RVSP TSH 0.2 PLAN: Proceed with A-fib ablation Continue Xarelto Continue antihypertensive therapy HPI Patient continues to have episodes of paroxysmal atrial fibrillation she gets short of breath walking on flat ground Denies any chest discomfort dizziness lightheadedness syncope in the last 1 week No fever chills cough ROS: No fever chills or rigors, no cough, phlegm or expectoration, no nausea, vomiting or diarrhea, no hematuria, dysuria, no musculoskeletal complaints, no strokes or seizures, no skin lesions. EXAMINATION: Blood pressure 155/74 mmHg pulse rate in the 70s regular afebrile Breath sounds are clear no rhonchi no crackles Heart sounds no murmurs Abdomen soft No lower extremity edema No JVD REVIEW OF LABS, ECG & MEDICAL DATA Sodium 141 potassium 3.7 BUN 25 and creatinine 0.7 TSH 0.155 Physical Exam Vitals: Vital Signs Temp Pulse Resp BP Pulse Ox 12/01/23 07:22 98.1 F 75 16 155/74 91 L Intake and Output 11/30/23 12/01/23 12/01/23 22:59 06:59 14:59 Intake Total 0 Balance 0 Intake: IV 0 Past Medical History Past Medical History: Atrial Fibrillation, Hypertension Additional Past Medical History / Comment(s): See Dr Matos's H&P. Frequent swelling ankles and feet, bladder urgency. History of Any Multi-Drug Resistant Organisms: None Reported Past Surgical History: Cardiac Ablation, Heart Catheterization, Hysterectomy Additional Past Surgical History / Comment(s): Cardioversion & INDIRA, Cardioversion. Past Anesthesia/Blood Transfusion Reactions: No Reported Reaction Past Psychological History: No Psychological Hx Reported Smoking Status: Never smoker Past Alcohol Use History: None Reported Past Drug Use History: None Reported - Past Family History Mother Additional Family Medical History / Comment(s): CEREBRAL HEMORRHAGE. Sister(s) Family Medical History: Cancer Additional Family Medical History / Comment(s): LUNG CANCER. Father Family Medical History: Cancer Physical Examination Vital Signs Temp Pulse Resp BP Pulse Ox 12/01/23 07:22 98.1 F 75 16 155/74 91 L Intake and Output 11/30/23 12/01/23 12/01/23 22:59 06:59 14:59 Intake Total 0 Balance 0 Intake: IV 0 Results 12/01/23 07:10 Cardiac Enzymes 12/01/23 Range/Units 07:10 AST 30 (14-36) U/L Comprehensive Metabolic Panel 12/01/23 Range/Units 07:10 Sodium 141 (137-145) mmol/L Potassium 3.7 (3.5-5.1) mmol/L Chloride 106 (98-107) mmol/L Carbon Dioxide 32 H (22-30) mmol/L BUN 25 H (7-17) mg/dL Creatinine 0.69 (0.52-1.04) mg/dL Glucose 109 H (74-99) mg/dL Calcium 9.3 (8.4-10.2) mg/dL AST 30 (14-36) U/L ALT 20 (4-34) U/L Alkaline Phosphatase 68 (38-126) U/L Total Protein 6.2 L (6.3-8.2) g/dL Albumin 3.7 (3.5-5.0) g/dL Current Medications Generic Name Dose Route Start Last Admin Trade Name Freq PRN Reason Stop Dose Admin Sodium Chloride 1,000 mls @ 20 mls/hr 12/01/23 05:41 12/01/23 07:03 Saline 0.9% IV 12/31/23 05:40 20 mls/hr .Q24H [facility] Administration Intake and Output 11/30/23 12/01/23 12/01/23 22:59 06:59 14:59 Intake Total 0 Balance 0 Intake: IV 0 12/01/23 07:10
[2023-12-01] MEDS: LIDOCAINE 1% INJ 10MG/ML (20 ML MDV) SQ ONE (10:27)
[2023-12-01] MEDS: HEPARIN SOD,PORK IN 0.45% NACL 25,000 UNIT in 0.45% NACL 1 250ML.BAG IV ONE (10:39)
[2023-12-01] MEDS: HEPARIN SODIUM (1,000 UNIT/ML) 1,000 UNIT in SODIUM CHLORIDE 0.9% 1,000 ML IRRIGATION ONE (10:59)
[2023-12-01] MEDS: HEPARIN SODIUM,PORCINE 10,000 UNIT in SODIUM CHLORIDE 0.9% 1,000 ML IRRIGATION ONE (11:19)
--- NOTE | 2023-12-01 13:51 | P.EPPROC ---
- EP Procedure Note Electrophysiology Procedure Note: Diagnosis Recurrent atrial fibrillation Previous PVI and A-fib ablation Final diagnosis Prior PVI durable at the ostial level Gap in the left atrial roof Very large pulmonary veins, all Successful isolation of the right superior pulmonary vein at an antral level Left atrial septal ablation Ablation of the left-sided veins at an antral level, posteriorly Atrial fibrillation induced with rate very rapid burst stimulation at 210 ms postprocedure Electrical cardioversion performed Details Patient was brought to the EP lab in a fasting state. Written informed consent was obtained prior to the procedure. General anesthesia provided. IV heparin started. Venous access was obtained in the right left femoral veins Intracardiac echo did not reveal any clear-cut evidence for a PFO or ASD A bubble study was performed and there was no evidence for [id number] shunting Right and left transseptal catheterization was performed RA pressure 13/9/11 mmHg LA pressure 27/6/15 mmHg Voltage mapping of the left atrium was performed Very large left atrium and very large pulmonary veins noted All pulmonary veins were completely isolated from the prior ablation but at an ostial level on account of the size of the pulmonary veins There was a gap in the left atrial roof The following RF ablations were performed Ablation of the right superior pulmonary vein at an antral level Left atrial septal ablation Left atrial roof ablation Ablation of the left-sided veins on the posterior wall to extend isolation to an antral level posteriorly Following that burst stimulation was performed and only with very aggressive stimulation was atrial fibrillation inducible. This was not an atrial tachycardia. Electrical cardioversion was performed The Penta ray catheter was then used to map the right atrial anatomy The SVC IVC and the free wall of the right atrium was carefully mapped There was no evidence for an accessory pulmonary vein Intracardiac echo revealed presence of all 4 pulmonary veins draining into the left atrium There was no evidence for pulmonary vein stenosis before or after the procedure Sinus cycle length 1052 ms, TX interval 240 ms, QRS 106 ms and QT interval 399 ms Sinus node recovery times prolonged at a pacing cycle length of 500 ms. Sinus node recovery time was 1768 ms Barium was instilled in the esophagus and esophageal deflection was performed to deflect the esophagus away from the RF line on the posterior wall on the left side The RF line was greater than 1 cm away from the edge of the barium The barium was then successfully suctioned out No acute injury to the esophagus noted no perforation noted Patient tolerated procedure well without any acute complication Plan continue anticoagulation with Xarelto
[2023-12-01] MEDS ORDERED: ACETAMINOPHEN TAB 325 MG TAB PO PRN (13:52)
[2023-12-01] MEDS: ACETAMINOPHEN IV (For NPO) 1,000 MG in EMPTY BAG 1 BAG IVPB ONE (15:46)
[2023-12-01] MEDS: hydrALAZINE HCL 50 MG TAB PO SCH (17:07)
[2023-12-01] MEDS: carvediloL 12.5 MG TAB PO SCH (17:07)
[2023-12-01] MEDS: RIVAROXABAN 20 MG TAB PO SCH (18:39)
[2023-12-02] MEDS: lisinopriL 20 MG TAB PO SCH (00:09)
[2023-12-02 07:35] VITALS: BP 167/80; PULSE 70; RESP 17; TEMP 99.4
[2023-12-02] MEDS: SPIRONOLACTONE 25 MG TAB PO SCH (08:28)
[2023-12-02] MEDS: ATORVASTATIN 40 MG TAB PO SCH (08:28)
--- NOTE | 2023-12-02 10:18 | P.DS ---
Providers Attending physician: Adair Matos Primary care physician: Stated None Hospital Course: This is a 67-year-old female who underwent A-fib ablation with Dr. Matos. Patient is doing well post procedure. She was deemed stable for discharge home today per Dr. Matos. No changes to patient's home medications. Please see EMR for further hospital course details. Discharge diagnosis Paroxysmal atrial fibrillation, status post A-fib ablation Nurse practitioner note has been reviewed by physician. Signing provider agrees with the documented findings, assessment, and plan of care documented by [employer] as a scribe. Plan - Discharge Summary Discharge Rx Participant: No New Discharge Prescriptions: Continue Rivaroxaban [Xarelto] 20 mg PO HS carvediloL [Coreg] 12.5 mg PO BID Multivitamins, Thera [Multivitamin (formulary)] 1 tab PO DAILY oxyBUTYnin chloride [Ditropan] 5 mg PO DAILY Spironolactone [Aldactone] 25 mg PO DAILY #30 tab Atorvastatin [Lipitor] 40 mg PO DAILY #30 tab Nitroglycerin Sl Tabs [Nitrostat] 0.4 mg SUBLINGUAL Q5M PRN #20 tab PRN Reason: Chest Pain lisinopriL [Zestril] 20 mg PO BID #60 tab hydrALAZINE HCL [Apresoline] 100 mg PO TID #90 tab Discharge Medication List Multivitamins, Thera [Multivitamin (formulary)] 1 tab PO DAILY 01/21/20 [History] Rivaroxaban [Xarelto] 20 mg PO HS 01/21/20 [History] carvediloL [Coreg] 12.5 mg PO BID 01/21/20 [History] oxyBUTYnin chloride [Ditropan] 5 mg PO DAILY 01/21/20 [History] Atorvastatin [Lipitor] 40 mg PO DAILY #30 tab 11/05/23 [Rx] Nitroglycerin Sl Tabs [Nitrostat] 0.4 mg SUBLINGUAL Q5M PRN #20 tab 11/05/23 [Rx] Spironolactone [Aldactone] 25 mg PO DAILY #30 tab 11/05/23 [Rx] hydrALAZINE HCL [Apresoline] 100 mg PO TID #90 tab 11/05/23 [Rx] lisinopriL [Zestril] 20 mg PO BID #60 tab 11/05/23 [Rx] Follow up Appointment(s)/Referral(s): Farzana Carr MD [STAFF PHYSICIAN] - 12/15/23 2:15 pm Patient Instructions/Handouts: Cardiac Ablation (GEN) Discharge Disposition: HOME SELF-CARE
== END 2023-12-02 09:24 | disposition home or self-care (01) ==
LOC: CATHEP 06:53 → 6NMEDSUR 13:23 → CATHEP 12-02 09:24
PROVIDERS: ATTEND Internal Medicine Clinical Cardiac Electrophysiology
DX: I48.0 Paroxysmal atrial fibrillation (principal); I10 Essential (primary) hypertension; Z79.01 Long term (current) use of anticoagulants; Z90.710 Acquired absence of both cervix and uterus; Z79.899 Other long term (current) drug therapy
CPT/HCPCS: 93462; 92960; 93656; 93657; 86900; 86901; 84439; 80053; 84443; 86850; C1759; C1769 ×4; C1894; C1760 ×2; C1766; C1730; C1731; J2250; J0330; J1644 ×4; J2710; J2001; J3010; J2704; J2371; J1596